=== PATIENT | male | born 1945 | race Caucasian/White ===

== ENCOUNTER 2024-05-14 10:24 | Outpatient (CLI) | payer MEDICARE ==
[2024-05-14 12:31] LABS: #Basophils 0.05 10x3/uL (0.0-0.2); %Basophils 0.5 % (0.0-1.0); %Eosinophils 0.3 % (0.0-10.0); %Lymphocytes 13.5 % (21.0-51.0); %Neutrophils 79.3 % (42.0-75.0); Hematocrit 44.3 % (42.0-52.0); Hemoglobin 15.2 g/dL (14.0-18.0); Mean Corpuscular HGB CONC 34.3 g/dL (32.0-36.0); Mean Corpuscular Hemoglobin 33.5 pg (27.0-31.0); Mean Corpuscular Volume 97.6 fL (78.0-98.0); Mean Platelet Volume 10.8 fL (7.4-10.4); Platelet Count 204 10x3/uL (130-400); RBC Distribution Width 12.5 % (11.5-14.5); Red Blood Cell (RBC) Count 4.54 mill/uL (4.70-6.10)
[2024-05-14 12:44] LABS: Anion Gap 12 mmol/L (10-20); BUN (Urea Nitrogen) 9 mg/dL (8.4-25.7); Calc. Creatinine Clearance 0 mL/min (70-130); Calcium 9.2 mg/dL (7.8-10.44); Carbon Dioxide 23 mmol/L (23-31); Chloride 106 mmol/L (98-107); Estimated GFR 81; Glucose 258 mg/dL (83-110); Sodium 137 mmol/L (136-145)
== END 2024-05-14 10:25 | disposition home or self-care (01) ==
LOC: LABBT 10:24
PROVIDERS: ATTEND Orthopaedic Surgery Hand Surgery
DX: Z01.818 Encounter for other preprocedural examination (principal); M15.1 Heberden's nodes (with arthropathy); L98.5 Mucinosis of the skin
CPT/HCPCS: 80048; 85025; 93005; 93010